=== PATIENT | male | born 2005 | race Caucasian/White ===

== ENCOUNTER 2025-06-18 10:16 | Emergency (ER) | payer OTHER ==
[~2025-06-18] VITALS: Ht 182.9 cm; Wt 81.3 kg
[2025-06-18 13:54] VITALS: BP 144/75; TEMP 97.8; O2SAT 100
== END 2025-06-18 13:59 | disposition home or self-care (01) ==
LOC: M ED 10:16
DX: S63.287A Dislocation of proximal interphalangeal joint of left little finger, initial encounter (principal); X58.XXXA Exposure to other specified factors, initial encounter; Y92.009 Unspecified place in unspecified non-institutional (private) residence as the place of occurrence of the external cause; Y93.72 Activity, wrestling; Y99.9 Unspecified external cause status